=== PATIENT | male | born 1980 | race Caucasian/White ===

== ENCOUNTER → 2018-01-09 | Outpatient (CLI) | payer OTHER ==
[~2018-01-09] MED LIST: ACYC800 PO; CEPH500 PO; GENT.3OPSO OU; SULTRIDS
== END | disposition home or self-care (01) ==
LOC: LAB 16:31 → LAB SHORT 16:31
DX: H05.012 Cellulitis of left orbit (principal)
CPT/HCPCS: 87070; 87205

== ENCOUNTER 2021-04-14 05:40 | Observation (INO) | payer SELFPAY ==
[~2021-04-14] VITALS: Ht 182.9 cm; Wt 95.2 kg
[2021-04-14 08:17] LABS: BASOPHILS ABSOLUTE AUTO 0.05 K/mm3 (0.00-0.23); BASOPHILS PERCENT AUTO 0 % (0-2); EOSINOPHILS ABSOLUTE AUTO 0.01 K/mm3 (0.00-0.68); EOSINOPHILS PERCENT AUTO 0 % (0-6); Hematocrit 50.2 % (37.0-53.0); Hemoglobin 17.1 g/dL (13.5-17.5); IMMATURE GRAN ABSOLUTE AUTO 0.05 K/mm3 (0.00-0.10); IMMATURE GRAN PERCENT AUTO 0 % (0-1); LYMPHOCYTES ABSOLUTE AUTO 0.93 K/mm3 (0.84-5.20); LYMPHOCYTES PERCENT AUTO 7 % (21-46); MONOCYTES ABSOLUTE AUTO 0.47 K/mm3 (0.16-1.47); MONOCYTES PERCENT AUTO 3 % (4-13); Mean Corpuscular HGB 31.7 pg (26.0-34.0); Mean Corpuscular HGB Conc 34.1 g/dL (31.5-36.5); Mean Corpuscular Volume 93 fL (80-100); Mean Platelet Volume 12.5 fL (9.1-12.4); NEUTROPHILS ABSOLUTE AUTO 12.54 K/mm3 (1.96-9.15); NEUTROPHILS PERCENT AUTO 89 % (41-73); Platelet Count 183 K/mm3 (150-400); RDW Coefficient Variation 13.3 % (11.7-14.2); RDW Standard Deviation 45.6 fL (35.1-46.3); Red Blood Cell Count 5.39 M/mm3 (4.30-5.90); White Blood Cell Count 14.05 K/mm3 (4.00-11.30)
[2021-04-14 08:44] LABS: Alanine Aminotransfer (ALT/SGP 34 U/L (12-78); Albumin, Blood 3.7 g/dL (3.4-5.0); Albumin/Globulin Ratio 0.9 (0.8-1.8); Alk Phos 90 U/L (50-136); Amylase, Blood 36 U/L (25-115); Anion Gap 4 mmol/L (6-16); Aspartate Aminotrans (AST/SGOT 14 U/L (12-37); Bilirubin, Total 0.3 mg/dL (0.1-1.0); Blood Urea Nitrogen 19 mg/dL (8-24); Bun/Creatinine Ratio 22.8 (12.0-20.0); CO2, Blood 26 mmol/L (21-32); Calcium, Blood 9.1 mg/dL (8.5-10.1); Chloride, Blood 110 mmol/L (98-108); Creatinine, Blood 0.84 mg/dL (0.60-1.20); Globulin, Blood 4.1 g/dL (2.2-4.0); Glomerular Filtration Rate >60 (60-); Glucose, Blood 152 mg/dL (70-99); Potassium, Blood 4.5 mmol/L (3.5-5.5); Sodium, Blood 140 mmol/L (136-145); Total Protein, Blood 7.8 g/dL (6.4-8.2)
--- NOTE | 2021-04-14 18:27 | NUR ---
ARRIVAL TO UNIT/SUMMARY PT ARRIVED TO UNIT AT APPROX 1650. HE WAS ABLE TO TRANSFER SELF TO BED WITH NO WEAKNESS NOTED. PT REPORTS NAUSEA AND PAIN ARE MUCH BETTER SINCE ARRIVAL TO FLOOR. HAS DENIED NEEDING ANY MEDICATION AT THIS TIME. PT IS ON CLEAR LIQUID DIET AT THIS TIME. PLAN IS FOR NPO AT MIDNIGHT AND PLAN FOR SURGERY TOMORROW. IV FLUIDS INFUSING PER EMAR. PT EDUCATED ON NPO AND ORIENTED TO UNIT. WILL REPORT TO ONCOMING RN.
--- NOTE | 2021-04-14 19:47 | NUR ---
RECEIVED REPORT AND ASSUMED CARE OF PT. HE IS LYING QUIETLY IN BED WATCHING TV, DENIES ANY NEEDS AT THIS TIME. FRESH ICE WATER PROVIDED. TM.
[2021-04-14 21:28] LABS: U Amphetamine Screen Not Detected; U Barbituate Screen Not Detected; U Benzodiazapine Screen Not Detected; U Buprenorphine Screen Not Detected; U Cannabinoids Screen DETECTED; U Cocaine Screen Not Detected; U Methadone Screen Not Detected; U Methamphetamine Screen Not Detected; U Opiates Screen DETECTED; U Oxycodone Screen Not Detected; U Phencyclidine Screen Not Detected; U Propoxyphene Screen Not Detected
[2021-04-15 04:47] LABS: Hemoglobin 15.1 g/dL (13.5-17.5); Mean Corpuscular HGB 31.3 pg (26.0-34.0); Mean Corpuscular HGB Conc 32.8 g/dL (31.5-36.5); Mean Corpuscular Volume 95 fL (80-100); Mean Platelet Volume 12.5 fL (9.1-12.4); Platelet Count 136 K/mm3 (150-400); RDW Coefficient Variation 13.8 % (11.7-14.2); RDW Standard Deviation 48.6 fL (35.1-46.3); Red Blood Cell Count 4.83 M/mm3 (4.30-5.90); White Blood Cell Count 11.56 K/mm3 (4.00-11.30)
[2021-04-15 05:01] LABS: Anion Gap 2 mmol/L (6-16); Blood Urea Nitrogen 11 mg/dL (8-24); Bun/Creatinine Ratio 12.5 (12.0-20.0); CO2, Blood 26 mmol/L (21-32); Calcium, Blood 7.7 mg/dL (8.5-10.1); Chloride, Blood 112 mmol/L (98-108); Creatinine, Blood 0.88 mg/dL (0.60-1.20); Glomerular Filtration Rate >60 (60-); Glucose, Blood 96 mg/dL (70-99); Potassium, Blood 3.9 mmol/L (3.5-5.5); Sodium, Blood 140 mmol/L (136-145)
--- NOTE | 2021-04-15 05:31 | NUR ---
SHIFT SUMMARY: HARDIK IS A&OX4. VSS, NO ACUTE EVENTS OVERNIGHT. IV TO R AC PATENT, TOLERATING PO INTAKE UNTIL BEING MADE NPO AT MIDNIGHT, INDEPENDENT IN THE ROOM. HE REPORTS ADEQUATE PAIN CONTROL WITH 1 MG OF DILAUDID. HE IS LYING IN BED WITH THE CALL LIGHT IN REACH. WILL REPORT TO DAY SHIFT RN.
[2021-04-15 09:19] LABS: SARS-Cov-2 (COVID-19) PCR, MMC NEGATIVE (NEGATIVE)
--- NOTE | 2021-04-15 13:19 | NUR ---
PT TRANSFERED TO [facility] FROM FLOOR VIA GURNY. History, Chart, Medications and Allergies reviewed before start of procedure. Lungs clear T/O to Auscultation. Patient confirms NPO status and agrees with scheduled surgery. Pre-Op teaching done. Pt verbalizes understanding.
[2021-04-15] MEDS ORDERED: HYDR1TAB94 PO (17:16)
--- NOTE | 2021-04-15 18:05 | NUR ---
PT ARRIVED FROM PACU AT APPROX 1630, DENIES ANY NAUSEA OR PAIN. ABLE TO SCOOT SELF FROM GURNEY TO BED. PATIENT ON ROOM AIR, DENIES SOB. STERI STRIPS CDI X3 TO ABDOMEN, UMBILICUS GAUZE CDI. PT HAS AMBULATED TO RESTROOM AND VOIDED. TOLERATING PO WELL, CONTINUES TO DENY NAUSEA. PLAN IS TO DISCHARGE ONCE PICKS UP PRESCRIPTION. PT CURRENTLY SITTING UP IN BED EATING, DRINKING WATER.
--- NOTE | 2021-04-15 18:51 | NUR ---
IV REMOVED PRIOR TO DISCHARGE, PT LEFT WITH . DECLINED FURTHER QUESTIONS. CONTINUED TO DENY NAUSEA OR PAIN. INSTRUCTIONS GONE OVER WITH PATIENT AND .
== END 2021-04-15 18:47 | disposition home or self-care (01) ==
LOC: ER 05:40 → ERHOLD 05:41 → SURS 05:41 → ERHOLD 11:26 → SURS 11:26 → ER 11:26 → ERHOLD 16:46 → SURS 16:46
PROVIDERS: Family Medicine; Nurse Practitioner Acute Care; Surgery; ADMIT Internal Medicine
PROC: 0FT44ZZ Resection of Gallbladder, Percutaneous Endoscopic Approach (ICD-10-PCS; principal; 2021-04-15 14:00)
DX: K80.00 Calculus of gallbladder with acute cholecystitis without obstruction (principal); F10.20 Alcohol dependence, uncomplicated; R16.0 Hepatomegaly, not elsewhere classified; K76.0 Fatty (change of) liver, not elsewhere classified; Z87.828 Personal history of other (healed) physical injury and trauma; Z20.822 Contact with and (suspected) exposure to COVID-19
CPT/HCPCS: 36415; 76705; 80048; 80053; 82150; 83690; 83735; 85025; 85027; 88304; 96365; 96366; 96367; 96375; 96376; 99285-25; A9270; G0378; J1100; J1170; J1885; J2250; J2405; J2543; J2704; J3010; J3411; J3475; J7030; J7042; J7120; U0004

== ENCOUNTER 2024-03-27 15:50 | Emergency (ER) | payer OTHER ==
[~2024-03-27] VITALS: Ht 182.9 cm; Wt 101.2 kg
[~2024-03-27 15:50] MED LIST changes: +HYDR1TAB94 PO
[2024-03-27 15:54] VITALS: BP 129/88
[2024-03-27 16:23] LABS: BASOPHILS ABSOLUTE AUTO 0.09 K/mm3 (0.00-0.23); BASOPHILS PERCENT AUTO 1 % (0-2); EOSINOPHILS ABSOLUTE AUTO 0.33 K/mm3 (0.00-0.68); EOSINOPHILS PERCENT AUTO 3 % (0-6); Hematocrit 48.5 % (37.0-53.0); Hemoglobin 16.5 g/dL (13.5-17.5); IMMATURE GRAN ABSOLUTE AUTO 0.06 K/mm3 (0.00-0.10); IMMATURE GRAN PERCENT AUTO 0 % (0-1); LYMPHOCYTES ABSOLUTE AUTO 2.41 K/mm3 (0.84-5.20); LYMPHOCYTES PERCENT AUTO 18 % (21-46); MONOCYTES ABSOLUTE AUTO 1.21 K/mm3 (0.16-1.47); MONOCYTES PERCENT AUTO 9 % (4-13); Mean Corpuscular HGB 31.1 pg (26.0-34.0); Mean Corpuscular Volume 91 fL (80-100); Mean Platelet Volume 11.5 fL (9.1-12.4); NEUTROPHILS ABSOLUTE AUTO 9.27 K/mm3 (1.96-9.15); NEUTROPHILS PERCENT AUTO 69 % (41-73); Platelet Count 294 K/mm3 (150-400); RDW Coefficient Variation 12.1 % (11.7-14.2); Red Blood Cell Count 5.31 M/mm3 (4.30-5.90); White Blood Cell Count 13.37 K/mm3 (4.00-11.30)
[2024-03-27 16:51] LABS: Albumin, Blood 3.4 g/dL (3.4-5.0); Albumin/Globulin Ratio 0.7 (0.8-1.8); Bilirubin, Total 0.8 mg/dL (0.1-1.0); Calcium, Blood 9.4 mg/dL (8.5-10.1); Creatinine, Blood 1.08 mg/dL (0.60-1.20); Globulin, Blood 5.2 g/dL (2.2-4.0); Total Protein, Blood 8.6 g/dL (6.4-8.2)
[2024-03-27] MEDS ORDERED: Ketorolac Tromethamine 30mg Vial IV ONE (18:05)
[2024-03-27] MEDS ORDERED: Ampicillin Sod/Sulbactam Sod 3 GM in NS 100 ML IV ONE (19:25)
[2024-03-27] MEDS ORDERED: Dexamethasone Sod Phos 10 MG/ML 1ML VIAL IV ONE (19:25)
[2024-03-27] MEDS ORDERED: AMOCLA875 PO (19:26)
== END 2024-03-27 20:13 | disposition home or self-care (01) ==
LOC: ER 15:50
PROVIDERS: Student in an Organized Health Care Education/Training Program
DX: J36 Peritonsillar abscess (principal); Z88.6 Allergy status to analgesic agent
CPT/HCPCS: 70491; 80053; 85025; 96365-59; 96375; 99284-25; J0295; J1100; J1885; Q9967